=== PATIENT | female | born 1985 | race Two or more races ===

== ENCOUNTER 2022-12-16 21:30 | Emergency (ER) | payer MEDICAID, OTHER ==
[~2022-12-16] VITALS: Ht 157.5 cm; Wt 104.5 kg
[2022-12-17] VITALS: PULSE 97; RESP 18; O2SAT 97
[2022-12-17 00:05] VITALS: TEMP 98
[2022-12-17] MEDS ORDERED: ONDANSETRON HCL 4 MG/2 ML VIAL ONE (00:45)
[2022-12-17] MEDS ORDERED: fentaNYL CITRATE 100 MCG/2 ML VL IV ONE (00:45)
[2022-12-17] MEDS ORDERED: ONDANSETRON HCL 4 MG/2 ML VIAL IV ONE (00:45)
[2022-12-17] MEDS ORDERED: ACE3T PO (01:28)
[2022-12-17 01:38] VITALS: O2SAT 95
[2022-12-17 01:44] VITALS: BP 120/85; PULSE 94; RESP 22
== END 2022-12-17 02:02 | disposition home or self-care (01) ==
LOC: EDBD 21:30 → ER 21:30
DX: S52.531A Colles' fracture of right radius, initial encounter for closed fracture (principal); S60.212A Contusion of left wrist, initial encounter; S90.01XA Contusion of right ankle, initial encounter; Z88.0 Allergy status to penicillin; V43.52XA Car driver injured in collision with other type car in traffic accident, initial encounter; Y93.I9 Activity, other involving external motion; Y92.89 Other specified places as the place of occurrence of the external cause; Y99.8 Other external cause status
CPT/HCPCS: 25605; 73100; 73110; 73120; 96374; 99285; J2405; J3010

== ENCOUNTER 2022-12-20 12:14 | Emergency (ER) | payer MEDICAID ==
[~2022-12-20] VITALS: Ht 157.5 cm; Wt 101.0 kg
[~2022-12-20 12:14] MED LIST: ACE3T PO
[2022-12-20 12:25] VITALS: BP 158/94; PULSE 107; RESP 18; TEMP 97.8; O2SAT 96
[2022-12-20] MEDS ORDERED: IBUP-1456 PO (14:19)
[2022-12-20] MEDS ORDERED: HYDR-4902 PO (14:19)
[2022-12-20] MEDS ORDERED: HYDROcodone-ACET 5/325MG TAB PO ONE (14:30)
== END 2022-12-20 14:50 | disposition home or self-care (01) ==
LOC: ER 12:14
DX: S52.501D Unspecified fracture of the lower end of right radius, subsequent encounter for closed fracture with routine healing (principal); Z79.899 Other long term (current) drug therapy; Z88.0 Allergy status to penicillin; V89.2XXD Person injured in unspecified motor-vehicle accident, traffic, subsequent encounter